=== PATIENT | male | born 1965 | race Hispanic/Latino ===

== ENCOUNTER 2018-09-15 11:00 | Emergency (ER) | payer BC ==
[~2018-09-15] VITALS: Ht 167.6 cm; Wt 67.6 kg
[2018-09-15] MEDS ORDERED: SODIUM CHLORIDE 0.9% 1000ML 1,000 ML IV STA (11:32)
[2018-09-15 12:14] LABS: BILIRUBIN,URINE NEGATIVE (NEGATIVE); CLARITY,URINE CLEAR (CLEAR); COLOR,URINE YELLOW (YELLOW); KETONES,URINE NEGATIVE (NEGATIVE); LEUKOCYTE ESTERASE ,URINE NEGATIVE (NEGATIVE); NITRITE,URINE NEGATIVE (NEGATIVE); PROTEIN,URINE DIPSTICK NEGATIVE (NEGATIVE); URINE UROBILINOGEN 0.2 mg/dL (0.2 - 1)
[2018-09-15] MEDS ORDERED: DIATRIZOATE MEGL/DIATRIZOA SOD 30 ML BTL PO ONE (12:33)
[2018-09-15 12:36] LABS: BACTERIA,URINE FEW /HPF; EPITHELIAL CELLS,URINE FEW /LPF; WBC,URINE (MAN) 0-5 /HPF (0-5)
[2018-09-15 13:08] LABS: BASOPHILS % 0.4 % (0.0-1.0); EOSINOPHILS # (AUTO) 0.3 (0.0-0.4); HEMATOCRIT 41.3 % (38.2-49.6); HEMOGLOBIN 13.8 g/dL (14.0-18.0); LYMPHOCYTES # (AUTO) 1.8 (1.0-3.2); LYMPHOCYTES % 16.7 % (18.0-39.1); MEAN CORPUSCULAR HEMOGLOBIN 30.7 pg (28-32); MEAN CORPUSCULAR HGB CONC 33.4 g/dL (31-35); MONOCYTES # (AUTO) 0.6 (0.2-0.8); MONOCYTES % 5.3 % (4.4-11.3); NEUTROPHILS % 74.2 % (38.7-80.0); PLATELET COUNT 254 x10e3/uL (140-360); RED BLOOD COUNT 4.49 x10e6/uL (4.3-5.7); RED CELL DISTRIBUTION WIDTH 13.2 % (11.7-14.4)
[2018-09-15] MEDS ORDERED: ONDANSETRON HCL INJ 2MG/ML 2ML 2 MG/ML VIAL ONE (13:23)
[2018-09-15] MEDS ORDERED: MORPHINE SULFATE INJ 4 MG/ML INJ 1ML ONE (13:23)
[2018-09-15 13:31] LABS: ALBUMIN 3.5 g/dL (3.5-5.0); ALBUMIN/GLOBULIN RATIO 0.9 (0.8-2.0); CALCIUM 9.7 mg/dL (8.4-10.2); CREATININE, SERUM 1.26 mg/dL (0.72-1.25)
[2018-09-15] MEDS ORDERED: ONDANSETRON HCL INJ 2MG/ML 2ML 2 MG/ML VIAL IV ONE (14:00)
[2018-09-15] MEDS ORDERED: MORPHINE SULFATE INJ 4 MG/ML INJ 1ML IV ONE (14:00)
[2018-09-15] MEDS ORDERED: SODIUM CHLORIDE 0.9% 50ML 50 ML ONE (14:04)
[2018-09-15] MEDS ORDERED: IOPAMIDOL 370 MG/ML 200 ML INFUS..BTL INJ ONE (14:04)
[2018-09-15 14:20] LABS: AMYLASE 82 U/L (25-125); LIPASE 58 U/L (8-78)
--- NOTE | 2018-09-15 14:59 | Diagnostic Imaging Report ---
EXAMINATION: CT of the abdomen and pelvis with contrast. TECHNIQUE: Spiral CT images of the abdomen and pelvis were performed from the lung bases to the lesser trochanters after the intravenous administration of 100 cc Isovue-[id number]. Coronal and sagittal reformatted images were obtained. COMPARISON: None. CLINICAL HISTORY:Left lower quadrant abdominal pain DISCUSSION: ABDOMEN/PELVIS: LOWER THORAX:4-5 mm juxtapleural nodule lateral segment right middle lobe series 2 image 1. Focal scar right middle lobe and bilateral lower lobes. Mild emphysematous changes. HEPATOBILIARY: Calcified granuloma segment 8. Otherwise no focal hepatic lesion or intrahepatic biliary ductal dilatation. Gallbladder is unremarkable. SPLEEN: No splenomegaly. PANCREAS: No focal masses or ductal dilatation. ADRENALS: No adrenal nodules. KIDNEYS/URETERS: Punctate (3 mm) nonobstructing right upper pole renal calculus series 2 image 29. Mild left hydronephrosis and delayed enhancement relative to the right with a punctate (2 mm) left ureterovesical junction calculus seen on series 2 image 72. No renal mass lesion. PELVIC ORGANS/BLADDER: Urinary bladder is incompletely distended but otherwise unremarkable. Coarse prostatic calcifications. PERITONEUM/RETROPERITONEUM: No free air or fluid. LYMPH NODES: No pelvic sidewall, retroperitoneal, or mesenteric adenopathy. VESSELS: Atherosclerotic calcification of the abdominal aorta, major branch vessels, and iliac arterial systems without aneurysmal dilatation. Portal vein, splenic vein, and central superior mesenteric vein are patent. GI TRACT: Paucity of intraperitoneal fat limits evaluation of the GI tract. The large bowel shows no evidence of distention or wall thickening. Gas and fecal material is noted throughout. The appendix is unremarkable. No findings of small bowel obstruction. BONES AND SOFT TISSUE: No osseous destructive lesion. Mild multilevel degenerative disc changes and facet arthropathy of the lumbar spine. No soft tissue abnormalities. IMPRESSION: 2 mm left ureterovesical junction calculus results in mild hydroureteronephrosis and delayed nephrogram. 3 mm nonobstructing right upper pole renal calculus. 5 mm juxtapleural nodule in the right middle lobe is likely infectious or inflammatory. However, outpatient CT scan of the chest without contrast is suggested for further evaluation. Mild emphysematous changes. Atherosclerotic vascular disease. Signed by: Dr. Jorgito Abdi M.D. on 09/15/2018 2:55 PM
== END 2018-09-15 16:42 | disposition home or self-care (01) ==
LOC: ER 11:00
DX: N13.2 Hydronephrosis with renal and ureteral calculous obstruction (principal); Z88.0 Allergy status to penicillin; I10 Essential (primary) hypertension; E11.9 Type 2 diabetes mellitus without complications; E78.5 Hyperlipidemia, unspecified; Z83.3 Family history of diabetes mellitus; Z82.49 Family history of ischemic heart disease and other diseases of the circulatory system
CPT/HCPCS: 36415; 74177; 80053; 81001; 82150; 83690; 85025; 99284; J2270; J2405; J7030; Q9967

== ENCOUNTER → 2018-10-06 | Outpatient (CLI) | payer BC ==
--- NOTE | 2018-10-06 16:58 | Diagnostic Imaging Report ---
CT of the chest, without contrast, 10/06/2018. History: Lung nodule follow-up. Comparison: CT abdomen 09/15/2018. Technique: Multidetector CT scanning of the chest was performed from the level of the apices to the upper abdomen without contrast. Coronal and sagittal multiplanar reformations were obtained. RADIATION DOSE: Total DLP: 545 mGy*cm Dose modulation, iterative reconstruction, and/or weight based adjustment of the mA/kV was utilized to reduce the radiation dose to as low as reasonably achievable. Discussion: Evaluation is limited without IV contrast. Chest: The heart, aorta, and pulmonary vessels are normal in size. There is no gross evidence of adenopathy. 5 mm noncalcified pleural-based right middle lobe nodule is unchanged. Minimal paraseptal and centrilobular emphysema is noted. Scattered atelectasis and multiple areas of ill-defined ground glass opacities measuring up to 2 cm are present throughout both lobes. There is no evidence of lobar consolidation or pleural effusion. Limited evaluation of the upper abdomen shows normal adrenal glands. 3 mm right renal calculus is unchanged in position. Mild left hydronephrosis is again visualized. Bones and soft tissues: No acute abnormality. IMPRESSION: Scattered bilateral areas of ground glass opacities suggestive of infectious/inflammatory process. Recommend follow-up CT in 3 months. Mild emphysematous disease is noted. Signed by: Paulino Barry on 10/06/2018 4:55 PM
== END ==
LOC: CT 15:28
PROVIDERS: ATTEND Internal Medicine
DX: R91.1 Solitary pulmonary nodule (principal)
CPT/HCPCS: 71250

== ENCOUNTER 2022-02-09 21:24 | Emergency (ER) | payer BC ==
[~2022-02-09] VITALS: Ht 167.6 cm; Wt 67.6 kg
[2022-02-09] MEDS ORDERED: ULTRAM 50MG50 MG PO (21:40)
[2022-02-09] MEDS ORDERED: CLEOCIN HCL300 MG PO (21:40)
[2022-02-09] MEDS ORDERED: LIDOCAINE HCL 1% LOCAL INJ 20 ML VIAL INJ STA (21:44)
== END 2022-02-09 22:00 | disposition home or self-care (01) ==
LOC: ER 21:26
DX: K02.9 Dental caries, unspecified (principal); I10 Essential (primary) hypertension; E11.9 Type 2 diabetes mellitus without complications; E78.5 Hyperlipidemia, unspecified
CPT/HCPCS: 99282